=== PATIENT | female | born 1990 | race Caucasian/White ===

== ENCOUNTER 2022-06-25 12:39 | Emergency (ER) | payer OTHER ==
[~2022-06-25] VITALS: Ht 167.6 cm; Wt 68.0 kg
--- NOTE | 2022-06-25 12:48 | NUR ---
PATIENT ELOPED FROM FACILITY. DISCHARGE INSTRUCTIONS NOT GIVEN TO PATIENT. DR. JIMENEZ NOTIFIED.
--- NOTE | 2022-06-25 12:48 | NUR ---
PT REFUSED ASSESSMENT BY NURSE, REFUSED VITAL SIGNS. PT DEMANDING A BED, INFORMED HER NO BED AVAILABLE AT THIS TIME BUT SOON ONE IS AVAILABLE, SHE WILL GET IT. BLANKET GIVEN. DR JIMENEZ SPEAKING WITH PT. PT REFUSED AND WALKED OUT WITH STEADY GAIT. PT AWAKE &ALERT.
== END 2022-06-25 12:48 | disposition left against medical advice (07) ==
LOC: MED 12:39
DX: Z76.1 Encounter for health supervision and care of foundling (principal); T40.411A Poisoning by fentanyl or fentanyl analogs, accidental (unintentional), initial encounter; Y92.89 Other specified places as the place of occurrence of the external cause
CPT/HCPCS: 99283